=== PATIENT | male | born 1975 | race Caucasian/White ===

== ENCOUNTER → 2017-08-24 | Outpatient (CLI) | payer OTHER ==
[2017-08-24] MEDS: GADOBUTROL 10 MMOL/10 ML VIAL IV (12:41)
== END | disposition home or self-care (01) ==
LOC: KCIC MRI 11:17
DX: R47.81 Slurred speech (principal); R41.89 Other symptoms and signs involving cognitive functions and awareness
CPT/HCPCS: 70553; A9585